=== PATIENT | male | born 1985 | race Caucasian/White ===

== ENCOUNTER 2025-03-28 08:52 | Day surgery (SDC) | payer BC ==
[~2025-03-28 08:52] MED LIST: Sodium Chloride 0.9% 10 ML Syringe FLUSH PRN; Sodium Chloride 0.9% 10 ML Syringe FLUSH SCH; propofoL 500 MG/50 ML 50 ML ONE
[2025-03-28] MEDS: Lactated Ringers 1,000 ML IV SCH (09:00)
[2025-03-28] MEDS ORDERED: Ondansetron 4 MG/2 ML SDV ONE (09:18)
[2025-03-28] MEDS ORDERED: dexmedeTOMIDine HCl 200 MCG/2 ML SDV ONE (09:18)
[2025-03-28] MEDS ORDERED: Dexamethasone 4 MG/ML 5 ML MDV ONE (09:18)
[2025-03-28] MEDS ORDERED: Ketorolac 30 MG/ML SDV ONE (09:18)
[2025-03-28] MEDS ORDERED: Propofol 200 MG/20 ML SDV ONE ×2 (09:22→10:54)
[2025-03-28] MEDS ORDERED: fentaNYL 250 MCG/5 ML SDV ONE (09:22)
[2025-03-28] MEDS: EPINEPHrine 1 MG/ML SDV ONE (10:39)
[2025-03-28] MEDS ORDERED: Lactated Ringers 1,000 ML ONE (10:56)
[2025-03-28] MEDS ORDERED: fentaNYL 100 MCG/2 ML SDV IVPUSH PRN (11:34)
== END 2025-03-28 13:25 | disposition home or self-care (01) ==
LOC: JD.SDS 08:52
PROVIDERS: ATTEND Surgery
DX: K42.9 Umbilical hernia without obstruction or gangrene (principal)
CPT/HCPCS: J0169; J0665; J0690; J1100; J1171; J1885; J2405; J2704; J3010; J3490; J7120